=== PATIENT | male | born 1940 | race Caucasian/White ===

== ENCOUNTER 2017-12-30 08:35 | Emergency (ER) | payer MEDICARE, OTHER ==
[~2017-12-30 08:35] MED LIST: LOSA100T2 PO; PRIL20TA2 PO; TOPA50TA7 PO
[2017-12-30 08:37] VITALS: BP 167/88; PULSE 88; RESP 15; TEMP 100; O2SAT 96
[2017-12-30] MEDS ORDERED: CALC950T2 (08:53)
[2017-12-30] MEDS ORDERED: SODIUM CHLORIDE 0.9% FLUSH 10 ML FLUSH IV FLUSH PRN (09:15)
[2017-12-30] MEDS ORDERED: LORazepam 2 MG/ML VIAL IV PUSH ONE (09:15)
[2017-12-30 09:22] VITALS: O2SAT 99
--- NOTE | 2017-12-30 09:29 | PD ---
HPI Chief Complaint: Pain: Acute or Chronic Time Seen by Provider: 09:04 Travel History International Travel<30 days: No Contact w/Intl Traveler<30days: No Traveled to known affect area: No History of Present Illness HPI Patient gives a history of a cyst removal from his hand or wrist which was placed in sugar tong....patient is here c/o whole body spasms, along with abd cramps and nausea...pt denies assoc factors such as fever/v/d/cp/backpain/ma/ PFSH Past Medical History Cancer: Yes (breast) Hypertension: Yes Past Surgical History Mastectomy: Yes Social History Alcohol Use: Yes Tobacco Use: No Allergies-Medications (Allergen,Severity, Reaction): Uncoded Allergies: CONTRAST DYE (Allergy, Severe, Anaphylaxis, 08/06/17) COULD NOT BREATHE; THROAT CLOSING UP Reported Meds & Prescriptions Reported Meds & Active Scripts Active Reported Calcitrate (Calcium Citrate) 200 Mg (950 Mg) Tablet 600 Losartan-Hydrochlorothiazide 100-25 Mg Tab 1 Tab PO DAILY Prilosec (Omeprazole Magnesium) 20 Mg Tab 40 Mg PO DAILY Review of Systems General / Constitutional: No: Fever Eyes: No: Visual changes HENT: No: Headaches Cardiovascular: No: Chest Pain or Discomfort Respiratory: No: Shortness of Breath Gastrointestinal: Positive: Nausea, Abdominal Pain Genitourinary: No: Dysuria Musculoskeletal: No: Pain Skin: No Rash Neurologic: No: Weakness Psychiatric: No: Depression Endocrine: No: Polydipsia Hematologic/Lymphatic: No: Easy Bruising Physical Exam Narrative GENERAL: SKIN: Warm and dry. HEAD: Atraumatic. Normocephalic. EYES: Pupils equal and round. No scleral icterus. No injection or drainage. ENT: No nasal bleeding or discharge. Mucous membranes pink and moist. NECK: Trachea midline. No JVD. CARDIOVASCULAR: Regular rate and rhythm. RESPIRATORY: No accessory muscle use. Clear to auscultation. Breath sounds equal bilaterally. GASTROINTESTINAL: Abdomen soft, non-tender, nondistended. MUSCULOSKELETAL: Extremities without clubbing, cyanosis, or edema. No obvious deformities. (right arm in sugar tong without any active bleeding) NEUROLOGICAL: Awake and alert. No obvious cranial nerve deficits. Motor grossly within normal limits. Five out of 5 muscle strength in the arms and legs. Normal speech. PSYCHIATRIC: Appropriate mood and affect; insight and judgment normal. Data Data Last Documented VS Vital Signs Date Time Temp Pulse Resp B/P (MAP) Pulse Ox O2 Delivery O2 Flow Rate FiO2 12/30/17 10:10 75 18 115/69 (84) 100 Room Air 12/30/17 08:37 100.0 Orders Orders Complete Blood Count With Diff (12/30/17 09:10) Comprehensive Metabolic Panel (12/30/17 09:10) Lipase (12/30/17 09:10) Prothrombin Time / Inr (Pt) (12/30/17 09:10) Act Partial Throm Time (Ptt) (12/30/17 09:10) Ct Abd/Pel W/O Iv Contrast (12/30/17 09:10) Iv Access Insert/Monitor (12/30/17 09:10) Ecg Monitoring (12/30/17 09:10) Oximetry (12/30/17 09:10) NPO (12/30/17 09:10) Sodium Chloride 0.9% Flush (Ns Flush) (12/30/17 09:15) Lorazepam Inj (Ativan Inj) (12/30/17 09:15) Labs Laboratory Tests Test 12/30/17 09:18 White Blood Count 10.5 TH/MM3 Red Blood Count 4.39 MIL/MM3 Hemoglobin 13.2 GM/DL Hematocrit 38.3 % Mean Corpuscular Volume 87.2 FL Mean Corpuscular Hemoglobin 30.0 PG Mean Corpuscular Hemoglobin Concent 34.3 % Red Cell Distribution Width 15.4 % Platelet Count 228 TH/MM3 Mean Platelet Volume 7.2 FL Neutrophils (%) (Auto) 82.5 % Lymphocytes (%) (Auto) 6.5 % Monocytes (%) (Auto) 10.3 % Eosinophils (%) (Auto) 0.4 % Basophils (%) (Auto) 0.3 % Neutrophils # (Auto) 8.7 TH/MM3 Lymphocytes # (Auto) 0.7 TH/MM3 Monocytes # (Auto) 1.1 TH/MM3 Eosinophils # (Auto) 0.0 TH/MM3 Basophils # (Auto) 0.0 TH/MM3 CBC Comment DIFF FINAL Differential Comment Prothrombin Time 10.7 SEC Prothromb Time International Ratio 1.1 RATIO Activated Partial Thromboplast Time 27.4 SEC Blood Urea Nitrogen 13 MG/DL Creatinine 0.98 MG/DL Random Glucose 118 MG/DL Total Protein 6.9 GM/DL Albumin 3.4 GM/DL Calcium Level 9.0 MG/DL Alkaline Phosphatase 64 U/L Aspartate Amino Transf (AST/SGOT) 37 U/L Alanine Aminotransferase (ALT/SGPT) 78 U/L Total Bilirubin 0.9 MG/DL Sodium Level 132 MEQ/L Potassium Level 4.2 MEQ/L Chloride Level 98 MEQ/L Carbon Dioxide Level 28.1 MEQ/L Anion Gap 6 MEQ/L Estimat Glomerular Filtration Rate 75 ML/MIN Lipase 162 U/L [facility] Medical Decision Making Medical Screen Exam Complete: Yes Emergency Medical Condition: Yes Medical Record Reviewed: Yes Differential Diagnosis colitis v divertic v electrolyte abnl Narrative Course CT does not show any evidence of colitis, diverticulitis patient does not have any abnormal electrolytes nor any elevations of his total CPK. Additionally Dr. Rao came to the bedside to address and redress and evaluate the patient' s wrist wound which was stable and redressed and resplinted. Patient is currently stable for discharge Diagnosis Primary Impression: Fasciculations Additional Impression: Bronchitis Patient Instructions: General Instructions, Muscle Spasm (ED) Scripts Azithromycin (Zithromax Z-Terry) 250 Mg Dspk 250 MG PO DIRECTED for Infection, #1 DSPK 0 Refills 500 MG (2 tabs) day 1, then 1 tab days 2-5. Prov: Kristopher Santos MD 12/30/17 Lorazepam (Ativan) 1 Mg Tab 1 MG PO Q8H Y for ANXIETY AND/OR AGITATION, #6 TAB 0 Refills Prov: Kristopher Santos MD 12/30/17 Disposition: 01 DISCHARGE HOME Condition: Stable Kristopher Santos MD Dec 30, 2017 09:29
[2017-12-30 09:34] LABS: AUTOMATED NEUTROPHIL # 8.7 TH/MM3 (1.8-7.7); BASOPHIL % 0.3 % (0.0-2.0); EOSINOPHIL % 0.4 % (0.0-4.0); HEMATOCRIT 38.3 % (39.0-51.0); HEMOGLOBIN 13.2 GM/DL (13.0-17.0); LYMPH % 6.5 % (9.0-44.0); LYMPHOCYTE # 0.7 TH/MM3 (1.0-4.8); MEAN CELL VOLUME 87.2 FL (80.0-100.0); MEAN CORPUSCULAR HGB CONC 34.3 % (32.0-36.0); MEAN PLATELET VOLUME 7.2 FL (7.0-11.0); MONO % 10.3 % (0.0-8.0); MONOCYTE # 1.1 TH/MM3 (0-0.9); NEUT % 82.5 % (16.0-70.0); PLATELET COUNT 228 TH/MM3 (150-450); RED BLOOD COUNT 4.39 MIL/MM3 (4.50-5.90); RED CELL DISTRIBUTION WIDTH 15.4 % (11.6-17.2); WHITE BLOOD COUNT 10.5 TH/MM3 (4.0-11.0)
[2017-12-30 09:49] LABS: INTERNATIONAL NORMALIZED RATIO 1.1 RATIO; PROTHROMBIN TIME - PATIENT 10.7 SEC (9.8-11.6)
[2017-12-30 09:54] LABS: ALBUMIN 3.4 GM/DL (3.4-5.0); ALT (GPT) 78 U/L (12-78); AST (GOT) 37 U/L (15-37); BICARBONATE 28.1 MEQ/L (21.0-32.0); BLOOD UREA NITROGEN 13 MG/DL (7-18); CHLORIDE 98 MEQ/L (98-107); CREATININE 0.98 MG/DL (0.60-1.30); GLOMERULAR FILTRATION RATE 75 ML/MIN (>89); GLUCOSE,RANDOM 118 MG/DL (74-106); SODIUM (NA) 132 MEQ/L (136-145)
[2017-12-30 09:57] LABS: ALKALINE PHOSPHATASE 64 U/L (45-117); TOTAL BILIRUBIN ADULT 0.9 MG/DL (0.2-1.0); TOTAL PROTEIN 6.9 GM/DL (6.4-8.2)
[2017-12-30 10:10] VITALS: BP 115/69; PULSE 75; RESP 18; O2SAT 100
--- NOTE | 2017-12-30 10:17 | RADRPT ---
EXAM DATE/TIME: 12/30/2017 09:34 [facility] COMPARISON: No previous studies available for comparison. INDICATIONS : Diffuse abdominal pain, constipation. Patient is three days post-op for wrist surgery. ORAL CONTRAST: No oral contrast ingested. RADIATION DOSE: 8.52 CTDIvol (mGy) MEDICAL HISTORY : Carcinoma, breast. Hypertension. SURGICAL HISTORY : Fusion, lumbar. Right wrist surgery. ENCOUNTER: Initial ACUITY: 1 day PAIN SCALE: 4/10 LOCATION: Bilateral abdomen. TECHNIQUE: Renal colic protocol. Volumetric scanning of the abdomen and pelvis was performed. Using automated exposure control and adjustment of the mA and/or kV according to patient size, radiation dose was kep t as low as reasonably achievable to obtain optimal diagnostic quality images. DICOM format image da ta is available electronically for review and comparison. FINDINGS: There is image degradation due to metallic lumbar spinal instrumentation and the patient's right arm in the [id number] scan. Right side: No evidence of hydronephrosis. No calcified stones in the collecting system or ureter. Left side: No evidence of hydronephrosis. No calcified stones in the collecting system or in the left ureter. Bladder: Smooth contours. No calcifications within the lumen. Other: Subsegmental consolidative infiltrate or scarring in the right lower lung. No calcified gallstones. No dilated loops of small or large bowel. Multiple sigmoid diverticula without radiographic evidenc e of diverticulitis. CONCLUSION: No evidence of hydronephrosis or calcified renal stones. Subsegmental infiltrate in the right lower lung. Nikunj Landon MD on December 30, 2017 at 10:12 Board Certified Radiologist. This report was verified electronically.
[2017-12-30] MEDS ORDERED: ZITHTAB PO (10:22)
[2017-12-30] MEDS ORDERED: LORA-474 PO (10:22)
--- NOTE | 2017-12-30 10:52 | PD.CONS ---
[facility] Service Orthopedic Surgeons Consult Requested By Dr. Santos and patient's called this am about the patient Reason for Consult whole body spasms and low grade fever. Primary Care Physician Jarrett Valencia M.D. Admission Diagnosis whole body spasms s/p right wrist fusion on / / Diagnoses: Chief Complaint: whole body spasms and low grade fever History of Present Illness 77 year old right dominant gentleman who underwent right wrist fusion and distal ulnar resection on 12/28/2017 as an outpatient under supraclavicular block and general anesthesia. I saw the patient in the office about 1999 on the night of surgery and changed his splint due to bleeding through the dressing. I spoke with the patient yesterday morning and he was complaining of constipation, but otherwise doing well. I instructed him to take Ducolax or Senekot for the constipation and he did not do that. He took Milk of Magnesia last night, but then threw that up and says that he has had a low grade fever on and off with "whole body spasms" and could not sleep last night. I told them to come to the ED to be evaluated today and he has seen Dr. Santos today and given Ativan and more comfortable. He is having trouble with moving his fingers today, and says that he has been elevating the hand and icing. The Percocet has been helping his pain and he has had constipation with narcotics in the past and had "whole body spasms" in the past after a general anesthetic, but with no determined diagnosis. He denies any leg pain or swelling. His temperature has not been higher than 100.5F Review of Systems Musculoskeletal: COMPLAINS OF: Joint pain, Stiffness Past Family Social History Allergies: Uncoded Allergies: CONTRAST DYE (Allergy, Severe, Anaphylaxis, 08/06/17) COULD NOT BREATHE; THROAT CLOSING UP Active Ordered Medications Current Medications Medications (Trade) Dose Ordered Sig/Mee Route Start Time Stop Time Status Last Admin (NS Flush) 2 ml UNSCH PRN IV FLUSH 12/30/17 09:15 Reported Meds & Active Scripts Active Zithromax Z-Terry (Azithromycin) 250 Mg Dspk 250 Mg PO DIRECTED 500 MG (2 tabs) day 1, then 1 tab days 2-5. Ativan (Lorazepam) 1 Mg Tab 1 Mg PO Q8H PRN Reported Calcitrate (Calcium Citrate) 200 Mg (950 Mg) Tablet 600 Losartan-Hydrochlorothiazide 100-25 Mg Tab 1 Tab PO DAILY Prilosec (Omeprazole Magnesium) 20 Mg Tab 40 Mg PO DAILY Physical Exam Vital Signs Vital Signs Date Time Temp Pulse Resp B/P (MAP) Pulse Ox O2 Delivery O2 Flow Rate FiO2 12/30/17 10:10 75 18 115/69 (84) 100 Room Air 12/30/17 09:22 99 Room Air 12/30/17 08:55 18 12/30/17 08:37 100.0 88 15 167/88 (114) 96 Physical Exam right hand fingers have moderate edema and minimal discomfort with active and passive ROM; splint removed and the splint was snug and has some moist blood around the wound, but no active bleeding from the wound now. He has moderate edema of the right wrist, hand and forearm, but his compartments are soft and he is able to move the fingers better with the splint removed. The wound is clean and no signs of infection, but some bruising of the fingers, hand and forearm, which is mild. He is neurovascularly intact right hand and arm. Laboratory Laboratory Tests Test 12/30/17 09:18 White Blood Count 10.5 Red Blood Count 4.39 Hemoglobin 13.2 Hematocrit 38.3 Mean Corpuscular Volume 87.2 Mean Corpuscular Hemoglobin 30.0 Mean Corpuscular Hemoglobin Concent 34.3 Red Cell Distribution Width 15.4 Platelet Count 228 Mean Platelet Volume 7.2 Neutrophils (%) (Auto) 82.5 Lymphocytes (%) (Auto) 6.5 Monocytes (%) (Auto) 10.3 Eosinophils (%) (Auto) 0.4 Basophils (%) (Auto) 0.3 Neutrophils # (Auto) 8.7 Lymphocytes # (Auto) 0.7 Monocytes # (Auto) 1.1 Eosinophils # (Auto) 0.0 Basophils # (Auto) 0.0 CBC Comment DIFF FINAL Differential Comment Prothrombin Time 10.7 Prothromb Time International Ratio 1.1 Activated Partial Thromboplast Time 27.4 Blood Urea Nitrogen 13 Creatinine 0.98 Random Glucose 118 Total Protein 6.9 Albumin 3.4 Calcium Level 9.0 Alkaline Phosphatase 64 Aspartate Amino Transf (AST/SGOT) 37 Alanine Aminotransferase (ALT/SGPT) 78 Total Bilirubin 0.9 Sodium Level 132 Potassium Level 4.2 Chloride Level 98 Carbon Dioxide Level 28.1 Anion Gap 6 Estimat Glomerular Filtration Rate 75 Lipase 162 Result Diagram: 12/30/1791712/30/[address] abdomen is okay and no obstructions Assessment & Plan Ortho Post Op Day #: 2 Problem List: (1) Swelling of right upper extremity ICD Codes: M79.89 - Other specified soft tissue disorders Status: Acute Plan: Wound and right forearm cleaned with peroxide and polysporin ointment placed on the wound and Adaptic, sterile 4x4s, cast padding and 3x35 fiberglass sugartong splint, Cas wraps. ELEVATE and ice right wrist and elevate above the heart. I will check with them tomorrow, but should start some Senekot and/or Ducolax NIRMALA. 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
== END 2017-12-30 11:36 | disposition home or self-care (01) ==
LOC: NEPE 08:35
DX: M19.031 Primary osteoarthritis, right wrist (principal); R25.3 Fasciculation; J40 Bronchitis, not specified as acute or chronic; I10 Essential (primary) hypertension
CPT/HCPCS: 29125; 74176; 80053; 83690; 85025; 85610; 85730; 96374; 99284; J2060